=== PATIENT | male | born 1990 | race Caucasian/White ===

== ENCOUNTER 2023-04-17 15:05 | Observation (INO) ==
[2023-04-17] MEDS: SODIUM CHLORIDE 0.9% 1,000 ML IV ONE ×2 (15:38→16:17)
[2023-04-17 15:47] LABS: Base Excess VBG -15.1 mEq/L; HCO3 VBG 13 mmol/L; Oxygen Saturation VBG 81.6 %; PCO2 VBG 37 mmHg (38-50); PO2 VBG 54 mmHg; pH VBG 7.15 (7.36-7.41)
[2023-04-17] MEDS: CALCIUM GLUCONATE 1,000 MG/60 ML BAG IV STA (15:50)
[2023-04-17] MEDS: ONDANSETRON INJ 2 MG/ML 2 ML VIAL ONE (15:55)
[2023-04-17 15:56] LABS: Basophils % (auto) 0.5 %; Eosinophils # (auto) 0.02 K/uL (0.00-0.50); Eosinophils % (auto) 0.1 %; Hematocrit (blood only) 46.1 % (42.0-52.0); Hemoglobin 14.9 g/dl (14.0-18.0); Immature Granulocytes # (auto) 0.19 K/uL (0.01-0.20); Lymphocytes # (auto) 1.44 K/uL (1.20-3.40); Lymphocytes % (auto) 7.3 %; Mean Corpuscular Hemoglobin 30.2 pg (25.0-34.0); Mean Corpuscular Hgb Conc 32.3 g/dL (32.0-36.0); Mean Corpuscular Volume 93.3 fL (80.0-100.0); Mean Platelet Volume 10.4 fL (9.4-12.4); Monocytes # (auto) 0.76 K/uL (0.11-0.59); Monocytes % (auto) 3.9 %; Neutrophils # (auto) 17.14 K/uL (1.40-6.50); Neutrophils % (auto) 87.2 %; Platelet Count 273 K/uL (130-400); RDW Coefficient of Variation 11.5 % (11.5-14.5); RDW Standard Deviation 39.4 fL (36.4-46.3); Red Blood Count 4.94 M/uL (4.70-6.10); White Blood Count 19.65 K/ul (4.8-10.8)
[2023-04-17] MEDS ORDERED: CARBOHYDRATES FOR HYPOGLYCEMIA PO PRN (16:05)
[2023-04-17] MEDS ORDERED: STAT IV Infusion **Titration per Protocol STA (16:05)
[2023-04-17] MEDS ORDERED: GLUCAGON FOR INJ 1 MG VIAL SQ PRN (16:05)
[2023-04-17] MEDS ORDERED: DEXTROSE 50% 50 ML SYRINGE IV PRN (16:05)
[2023-04-17] MEDS ORDERED: GLUCOSE 40% GEL 15 GM TUBE PO PRN (16:05)
[2023-04-17] MEDS ORDERED: DKA GOAL RANGE 150-250 mg/dl ONE (16:05)
[2023-04-17] MEDS ORDERED: GLUCOSE 10 TAB/TUBE PO PRN (16:05)
[2023-04-17 16:08] LABS: iSTAT Creatinine 0.9 mg/dl (0.6-1.3); iSTAT Ionized Calcium 1.09 mmol/l (1.12-1.32); iSTAT Potassium 5.7 mmol/L (3.3-5.0)
[2023-04-17 16:15] LABS: Albumin Level 4.8 gm/dl (3.4-5.0); BUN Creatinine Ratio 23.9 (10-20); Bilirubin Direct 0.2 mg/dl (0-0.2); Calcium 9.8 mg/dl (8.6-10.3); Creatinine Clr Calc Pharmacy 91.2 ml/min; Est GFR (African American) 94.4 ml/min; Est GFR (Non-African American) 81.4 ml/min; Potassium 5.8 mmol/L (3.5-5.1)
[2023-04-17 16:29] LABS: Magnesium 1.8 mg/dl (1.7-2.4); Phosphorus 4.1 mg/dl (2.5-4.9)
[2023-04-17] MEDS: INSULIN REGULAR 250 UNITS in SODIUM CHLORIDE 0.9% 247.5 ML IV SCH (16:35)
[2023-04-17] MEDS: NovoLIN-R BOLUS FROM BAG IV ONE (16:36)
--- NOTE | 2023-04-17 16:55 | Emergency Department Note ---
Impression & Plan Diabetic ketoacidosis ED Provider Note NAME: BIANCA ORTIZ AGE: 32 SEX: M : 1990 ARRIVES VIA: Walk-In INFORMANT: Patient, ED PROVIDER(S): David Novoa MD CHIEF COMPLAINT: DKA HPI: This is a 32-year-old male presenting for DKA. Patient states that he is type I diabetic and has been in DKA numerous times. He notes that this morning he began having nausea with vomiting. He states he was somewhat drowsy and had pain generalized around his body. He states he has an insulin pump and notes that his glucose was reading high. Otherwise he notes that he feels that he is in DKA. He had nauseousness with vomiting. Increasing heart rate. No diarrhea at this point. No chest pain or shortness of breath. ROS: See above HPI for pertinent positives & negatives. A total of 10 systems reviewed and were otherwise negative. PAST MEDICAL HISTORY: See Below PAST SURGICAL HISTORY: See Below FAMILY HISTORY: See Below SOCIAL HISTORY: See Below HOME MEDICATIONS: See Below ALLERGIES: See Below VITALS: See Below PHYSICAL EXAMINATION: General: resting comfortably in no acute distress Head: Normocephalic and atraumatic Eyes: Normal inspection, extraocular muscles intact Ear, nose, throat: Normal external exam Neck: Normal range of motion Respiratory: lungs clear to auscultation bilaterally Cardiovascular: Regular rate/rhythm, no murmur GI: soft, nontender, no guarding or rebound Extremities: nontender, moves all extremities Neuro: The patient awake and alert, appropriately conversive, no focal deficits, symmetric faces Skin: Warm, dry, and intact MEDICAL DECISION MAKING: This is a 32-year-old male presenting for DKA. Patient has a high blood glucose here. He tells me he has had numerous DKA admissions and this feels similar. -Patient has elevated lactic acid level, acidotic on VBG with a large anion gap. This consistent with DKA. -[id number] testing does reveal a potassium of 5.7. Will give calcium gluconate at this time for cardiac stabilization. Otherwise will start insulin drip. Will remove patient's insulin pump when insulin is started. -Otherwise we will monitor closely for electrolyte disturbances -Will give adequate fluid resuscitation initially adding potassium as necessary repeat blood work is back -ECG independently interpreted by me with sinus tachycardia, rate of 122, right axis deviation, normal [place], normal QRS, normal QTc, no ST segment elevations consistent with STEMI criteria, occasional PVCs no peaked T waves -He has an insulin drip running with decrease in his serum glucose. Improving vital signs and lab work. Will admit for further DKA management and closure of his scalp. Differential diagnosis: DKA, sepsis, [facility] ER treatment provided: See below Diagnostics interpreted by me: ECG: See above Cardiac Monitoring: An order was placed for continuous cardiac monitoring. The monitor shows a rate of 97 with sinus rhythm. Laboratory studies: As stated above and show below. Imaging studies: See below. Critical Care Note: I have personally spent 55 minutes of critical care time in the direct management of this patient. This includes bedside care, interpretation of diagnostic studies, and testing, discussion with consultants, patient, and family members, and other required patient management activities. This 55 minutes is in excess of all separately billable procedures. Past Med/Surg History Medical History (Updated 04/20/23 @ 14:41 by David Novoa MD) Tobacco use Alcohol use T1DM (type 1 diabetes mellitus) Diabetic ketoacidosis Social History Smoking Status: Current every day smoker Tobacco Type: Cigarettes Hx Alcohol Use: Yes Hx Substance Use: No Preferred Language: Croatian Communication Ability: Effective Electric Gas Appliances Demonstrator Required: No Beliefs That Will Affect Care: None Current Living Situation: Alone Feels Safe at Home: Yes Allergies Allergies Allergy/AdvReac Type Severity Reaction Status Date / Time No Known Allergies Allergy Verified 04/17/23 17:25 Home Meds Home Medications Medication Instructions Recorded Confirmed acetaminophen 500 mg tablet 1,000 mg PO Q6H PRN PAIN/FEVER 04/17/23 04/17/23 (Tylenol Extra Strength) ibuprofen 200 mg tablet 800 mg PO Q6H PRN PAIN/FEVER 04/17/23 04/17/23 insulin aspart U-100 100 unit/mL 0 unit continuous subcutaneous 04/17/23 04/17/23 subcutaneous solution infusion CONTINOUS insulin glargine 100 unit/mL 0 unit subcut DIRECTED PRN PUMP 04/17/23 04/17/23 subcutaneous solution FAILURE Previous Rx's Medication Instructions Recorded pantoprazole 40 mg tablet,delayed 40 mg PO DAILY #30 tabs 04/18/23 release (Protonix) Results & Data (ED) Vital Signs Vital Signs - 24 hr 04/17/23 15:09 04/17/23 15:33 04/17/23 15:35 Temperature 36.6 C Temperature Source Temporal Artery Scan Pulse Rate 124 H 124 H Pulse Rate [Apical] 131 H Pulse Rate from SpO2 Sensor Respiratory Rate 18 20 Respiratory Effort / Characteristics Non-Labored Spontaneous Respiratory Depth Normal Normal Respiratory Pattern Regular Blood Pressure 119/77 Blood Pressure Mean 91 Pulse Oximetry 98 98 Oxygen Delivery Method Room Air Room Air Sepsis Recent Fever Within 48 Hours No Sepsis New/Unexplained Change in Mental Status N/A Sepsis Action Taken by Nursing No Action Required 04/17/23 17:50 04/17/23 18:00 04/17/23 18:00 Temperature Temperature Source Pulse Rate 117 H 119 H Pulse Rate [Apical] Pulse Rate from SpO2 Sensor 117 H 114 H Respiratory Rate 20 16 Respiratory Effort / Characteristics Respiratory Depth Respiratory Pattern Blood Pressure 105/62 Blood Pressure Mean 72 Pulse Oximetry 95 92 Oxygen Delivery Method Sepsis Recent Fever Within 48 Hours Sepsis New/Unexplained Change in Mental Status Sepsis Action Taken by Nursing 04/17/23 18:30 04/17/23 18:30 04/17/23 19:00 Temperature Temperature Source Pulse Rate 117 H Pulse Rate [Apical] Pulse Rate from SpO2 Sensor 115 H Respiratory Rate 21 Respiratory Effort / Characteristics Respiratory Depth Respiratory Pattern Blood Pressure 117/65 111/82 Blood Pressure Mean 76 90 Pulse Oximetry 96 Oxygen Delivery Method Sepsis Recent Fever Within 48 Hours Sepsis New/Unexplained Change in Mental Status Sepsis Action Taken by Nursing 04/17/23 19:00 Temperature Temperature Source Pulse Rate 117 H Pulse Rate [Apical] Pulse Rate from SpO2 Sensor 116 H Respiratory Rate 19 Respiratory Effort / Characteristics Respiratory Depth Respiratory Pattern Blood Pressure Blood Pressure Mean Pulse Oximetry 95 Oxygen Delivery Method Sepsis Recent Fever Within 48 Hours Sepsis New/Unexplained Change in Mental Status Sepsis Action Taken by Nursing Laboratory Data 04/18/23 03:59 04/18/23 11:57 Lab Results 04/17/23 04/17/23 04/17/23 Range/Units 15:34 15:37 15:55 WBC 19.65 H (4.8-10.8) K/ul RBC 4.94 (4.70-6.10) M/uL Hgb 14.9 (14.0-18.0) g/dl POC Hgb 15.0 (14.0-18.0) g/dl Hct 46.1 (42.0-52.0) % POC Hct 44 (42-52) % MCV 93.3 (80.0-100.0) fL MCH 30.2 (25.0-34.0) pg MCHC 32.3 (32.0-36.0) g/dL RDW Std Deviation 39.4 (36.4-46.3) fL RDW Coeff of Lionel 11.5 (11.5-14.5) % Plt Count 273 (130-400) K/uL MPV 10.4 (9.4-12.4) fL Immature Gran % (Auto) 1.0 % Neut % (Auto) 87.2 % Lymph % (Auto) 7.3 % [place] % (Auto) 3.9 % Eos % (Auto) 0.1 % Baso % (Auto) 0.5 % Neut # (Auto) 17.14 H (1.40-6.50) K/uL Lymph # (Auto) 1.44 (1.20-3.40) K/uL [place] # (Auto) 0.76 H (0.11-0.59) K/uL Eos # (Auto) 0.02 (0.00-0.50) K/uL Baso # (Auto) 0.10 (0.00-0.20) K/uL Immature Gran # (Auto) 0.19 (0.01-0.20) K/uL VBG pH 7.15 L (7.36-7.41) VBG pCO2 37 L (38-50) mmHg VBG pO2 54 mmHg VBG HCO3 13 mmol/L VBG O2 Saturation 81.6 % VBG Base Excess -15.1 mEq/L POC Sodium 133 L (135-144) mmol/L Sodium 133 L (136-145) mmol/L POC Potassium 5.7 H (3.3-5.0) mmol/L Potassium 5.8 H (3.5-5.1) mmol/L POC Chloride 105 (101-112) mmol/L Chloride 95 L (98-107) mmol/L Carbon Dioxide 11 L (21-32) mmol/L POC Total CO2 14 L (24-31) mmol/L Anion Gap 27 H (3-11) POC Anion Gap 20.0 (16-25) mmol/L POC BUN 28 H (7-18) mg/dl BUN 28 H (6-23) mg/dl Creatinine 1.17 (0.6-1.4) mg/dl POC Creatinine 0.9 (0.6-1.3) mg/dl Est Cr Clr Drug Dosing 91.2 ml/min Est GFR ( Amer) 94.4 ml/min Est GFR (Non-Af Amer) 81.4 ml/min BUN/Creatinine Ratio 23.9 H (10-20) Glucose 517 H* (70-99(Fasting)) mg/dl POC Glucose 522 H* (70-99) mg/dl POC Glucose (other) 539 H* (70-99) mg/dl Estimat Average Glucose 229 mg/dl Hemoglobin A1c 9.6 H (4.5-5.6) % Osmolality 325 H (280-300) mOsm/kg Lactate 3.3 H* (0.4-2.0) mmol/L Calcium 9.8 (8.6-10.3) mg/dl POC Ioniz Calcium Chyna 1.09 L (1.12-1.32) mmol/l Phosphorus 4.1 (2.5-4.9) mg/dl Magnesium 1.8 (1.7-2.4) mg/dl Total Bilirubin 1.0 (0.2-1.0) mg/dl Direct Bilirubin 0.2 (0-0.2) mg/dl AST 27 (13-39) U/L ALT 25 (7-52) U/L Alkaline Phosphatase 115 H (34-104) U/L Total Protein 8.0 (6.0-8.3) gm/dl Albumin 4.8 (3.4-5.0) gm/dl 04/17/23 04/17/23 04/17/23 Range/Units 17:38 17:39 17:44 WBC (4.8-10.8) K/ul RBC (4.70-6.10) M/uL Hgb (14.0-18.0) g/dl POC Hgb (14.0-18.0) g/dl Hct (42.0-52.0) % POC Hct (42-52) % MCV (80.0-100.0) fL MCH (25.0-34.0) pg MCHC (32.0-36.0) g/dL RDW Std Deviation (36.4-46.3) fL RDW Coeff of Lionel (11.5-14.5) % Plt Count (130-400) K/uL MPV (9.4-12.4) fL Immature Gran % (Auto) % Neut % (Auto) % Lymph % (Auto) % [place] % (Auto) % Eos % (Auto) % Baso % (Auto) % Neut # (Auto) (1.40-6.50) K/uL Lymph # (Auto) (1.20-3.40) K/uL [place] # (Auto) (0.11-0.59) K/uL Eos # (Auto) (0.00-0.50) K/uL Baso # (Auto) (0.00-0.20) K/uL Immature Gran # (Auto) (0.01-0.20) K/uL VBG pH (7.36-7.41) VBG pCO2 (38-50) mmHg VBG pO2 mmHg VBG HCO3 mmol/L VBG O2 Saturation % VBG Base Excess mEq/L POC Sodium (135-144) mmol/L Sodium 138 (136-145) mmol/L POC Potassium (3.3-5.0) mmol/L Potassium 4.4 D (3.5-5.1) mmol/L POC Chloride (101-112) mmol/L Chloride 106 (98-107) mmol/L Carbon Dioxide 12 L (21-32) mmol/L POC Total CO2 (24-31) mmol/L Anion Gap 20 H (3-11) POC Anion Gap (16-25) mmol/L POC BUN (7-18) mg/dl BUN 29 H (6-23) mg/dl Creatinine 1.07 (0.6-1.4) mg/dl POC Creatinine (0.6-1.3) mg/dl Est Cr Clr Drug Dosing 99.7 ml/min Est GFR ( Amer) 105.2 ml/min Est GFR (Non-Af Amer) 90.7 ml/min BUN/Creatinine Ratio 27.1 H (10-20) Glucose 376 H* (70-99(Fasting)) mg/dl POC Glucose 380 H* (70-99) mg/dl POC Glucose (other) (70-99) mg/dl Estimat Average Glucose mg/dl Hemoglobin A1c (4.5-5.6) % Osmolality (280-300) mOsm/kg Lactate 2.3 H* (0.4-2.0) mmol/L Calcium 8.4 L (8.6-10.3) mg/dl POC Ioniz Calcium Chyna (1.12-1.32) mmol/l Phosphorus (2.5-4.9) mg/dl Magnesium (1.7-2.4) mg/dl Total Bilirubin (0.2-1.0) mg/dl Direct Bilirubin (0-0.2) mg/dl AST (13-39) U/L ALT (7-52) U/L Alkaline Phosphatase (34-104) U/L Total Protein (6.0-8.3) gm/dl Albumin (3.4-5.0) gm/dl 04/17/23 Range/Units 18:45 WBC (4.8-10.8) K/ul RBC (4.70-6.10) M/uL Hgb (14.0-18.0) g/dl POC Hgb (14.0-18.0) g/dl Hct (42.0-52.0) % POC Hct (42-52) % MCV (80.0-100.0) fL MCH (25.0-34.0) pg MCHC (32.0-36.0) g/dL RDW Std Deviation (36.4-46.3) fL RDW Coeff of Lionel (11.5-14.5) % Plt Count (130-400) K/uL MPV (9.4-12.4) fL Immature Gran % (Auto) % Neut % (Auto) % Lymph % (Auto) % [place] % (Auto) % Eos % (Auto) % Baso % (Auto) % Neut # (Auto) (1.40-6.50) K/uL Lymph # (Auto) (1.20-3.40) K/uL [place] # (Auto) (0.11-0.59) K/uL Eos # (Auto) (0.00-0.50) K/uL Baso # (Auto) (0.00-0.20) K/uL Immature Gran # (Auto) (0.01-0.20) K/uL VBG pH (7.36-7.41) VBG pCO2 (38-50) mmHg VBG pO2 mmHg VBG HCO3 mmol/L VBG O2 Saturation % VBG Base Excess mEq/L POC Sodium (135-144) mmol/L Sodium (136-145) mmol/L POC Potassium (3.3-5.0) mmol/L Potassium (3.5-5.1) mmol/L POC Chloride (101-112) mmol/L Chloride (98-107) mmol/L Carbon Dioxide (21-32) mmol/L POC Total CO2 (24-31) mmol/L Anion Gap (3-11) POC Anion Gap (16-25) mmol/L POC BUN (7-18) mg/dl BUN (6-23) mg/dl Creatinine (0.6-1.4) mg/dl POC Creatinine (0.6-1.3) mg/dl Est Cr Clr Drug Dosing ml/min Est GFR ( Amer) ml/min Est GFR (Non-Af Amer) ml/min BUN/Creatinine Ratio (10-20) Glucose (70-99(Fasting)) mg/dl POC Glucose 320 H* (70-99) mg/dl POC Glucose (other) (70-99) mg/dl Estimat Average Glucose mg/dl Hemoglobin A1c (4.5-5.6) % Osmolality (280-300) mOsm/kg Lactate (0.4-2.0) mmol/L Calcium (8.6-10.3) mg/dl POC Ioniz Calcium Hcyna (1.12-1.32) mmol/l Phosphorus (2.5-4.9) mg/dl Magnesium (1.7-2.4) mg/dl Total Bilirubin (0.2-1.0) mg/dl Direct Bilirubin (0-0.2) mg/dl AST (13-39) U/L ALT (7-52) U/L Alkaline Phosphatase (34-104) U/L Total Protein (6.0-8.3) gm/dl Albumin (3.4-5.0) gm/dl Administered Medications Discontinued Medications Sodium Chloride (Nss) 1,000 mls @ 999 mls/hr IV .Q1H1M ONE Stop: 04/17/23 16:16 Last Infusion: 04/17/23 16:39 Dose: Infused Documented By: Admin: 04/17/23 15:38 Dose: 999 mls/hr Documented By: JENY Calcium Gluconate () 1,000 mg in 60 mls @ 240 mls/hr IV NOW STA Stop: 04/17/23 15:59 Last Infusion: 04/17/23 16:17 Dose: Infused Documented By: Admin: 04/17/23 15:50 Dose: 240 mls/hr Documented By: AB Insulin Human Regular 250 (units/ Sodium Chloride) 250 mls @ 2.3 mls/hr IV .Q24H RADHA; Protocol Stop: 04/18/23 14:45 Last Titration: 04/18/23 15:02 Dose: Infused Documented By: GPF Co-signed By: ES Titration: 04/18/23 14:04 Dose: 2.3 units/hr, 2.3 mls/hr Documented By: GPF Co-signed By: CAM Titration: 04/18/23 13:00 Dose: 2.3 units/hr, 2.3 mls/hr Documented By: GPF Co-signed By: CAM Titration: 04/18/23 12:00 Dose: 2.3 units/hr, 2.3 mls/hr Documented By: GPF Co-signed By: CAM Titration: 04/18/23 11:06 Dose: 2.3 units/hr, 2.3 mls/hr Documented By: GPF Co-signed By: CAM Titration: 04/18/23 10:10 Dose: 2.9 units/hr, 2.9 mls/hr Documented By: GPF Co-signed By: ES Titration: 04/18/23 09:16 Dose: 2.4 units/hr, 2.4 mls/hr Documented By: GPF Co-signed By: NMS Titration: 04/18/23 08:23 Dose: 2 units/hr, 2 mls/hr Documented By: FANG Co-signed By: CAW Titration: 04/18/23 07:22 Dose: 2 units/hr, 2 mls/hr Documented By: FANG Co-signed By: SM Titration: 04/18/23 05:10 Dose: 0 units/hr, 0 mls/hr Documented By: DENIZ Co-signed By: DLH Titration: 04/18/23 04:07 Dose: 4.3 units/hr, 4.3 mls/hr Documented By: DENIZ Co-signed By: IDD Titration: 04/18/23 00:35 Dose: 5.4 units/hr, 5.4 mls/hr Documented By: DENIZ Co-signed By: ASW Titration: 04/17/23 22:14 Dose: 0 units/hr, 0 mls/hr Documented By: JENY Co-signed By: ASW Titration: 04/17/23 21:07 Dose: 5.4 units/hr, 5.4 mls/hr Documented By: JENY Co-signed By: ACC Titration: 04/17/23 19:58 Dose: 6.7 units/hr, 6.7 mls/hr Documented By: JENY Co-signed By: ASW Titration: 04/17/23 18:49 Dose: 8.4 units/hr, 8.4 mls/hr Documented By: JENY Co-signed By: ACC Titration: 04/17/23 17:42 Dose: 8.4 units/hr, 8.4 mls/hr Documented By: DESI Co-signed By: ACC Admin: 04/17/23 16:35 Dose: 7 units/hr, 7 mls/hr Documented By: JENY Co-signed By: Sodium Chloride (Nss) 1,000 mls @ 999 mls/hr IV .Q1H1M ONE Stop: 04/17/23 17:05 Last Infusion: 04/17/23 17:18 Dose: Infused Documented By: Admin: 04/17/23 16:17 Dose: 999 mls/hr Documented By: JENY Acetaminophen (Ofirmev) 1,000 mg in 100 mls @ 400 mls/hr IV NOW STA Stop: 04/17/23 17:05 Last Infusion: 04/17/23 17:14 Dose: Infused Documented By: Admin: 04/17/23 16:59 Dose: 400 mls/hr Documented By: JENY Potassium Chloride 30 meq/ (Parenteral Electrolytes) 1,015 mls @ 150 mls/hr IV .Q6H46M RADHA Stop: 05/17/23 18:59 Last Infusion: 04/17/23 23:16 Dose: Infused Documented By: Admin: 04/17/23 19:14 Dose: 150 mls/hr Documented By: JENY Pantoprazole Sodium 40 mg/ (Syringe) 10 mls @ 5 mls/min IV BID RADHA Stop: 05/17/23 20:59 Last Admin: 04/18/23 11:31 Dose: 5 mls/min Documented By: Admin: 04/17/23 20:41 Dose: 5 mls/min Documented By: JENY Acetaminophen (Ofirmev) 1,000 mg in 100 mls @ 400 mls/hr IV Q8H PRN PRN Reason: NPO, vomiting, DKA Stop: 04/20/23 21:12 Last Infusion: 04/18/23 00:35 Dose: Infused Documented By: Admin: 04/18/23 00:16 Dose: 400 mls/hr Documented By: DENIZ Potassium Chloride/Dextrose/Sod Cl (D5w And 1/2nss + 20meq Kcl) 20 meq in 1,000 mls @ 175 mls/hr IV .Q5H43M RADHA Stop: 05/17/23 22:59 Last Infusion: 04/18/23 15:00 Dose: Infused Documented By: Admin: 04/18/23 11:31 Dose: 150 mls/hr Documented By: Infusion: 04/18/23 11:31 Dose: Infused Documented By: Admin: 04/18/23 05:26 Dose: 150 mls/hr Documented By: Infusion: 04/18/23 05:25 Dose: Infused Documented By: Admin: 04/17/23 23:31 Dose: 175 mls/hr Documented By: DENIZ Magnesium Sulfate/Dextrose (Magnesium Sulfate / D5w) 1 gm in 100 mls @ 50 mls/hr IV ONE ONE Stop: 04/18/23 00:48 Last Infusion: 04/18/23 01:40 Dose: Infused Documented By: Admin: 04/17/23 23:40 Dose: 50 mls/hr Documented By: DENIZ Magnesium Sulfate/Dextrose (Magnesium Sulfate / D5w) 1 gm in 100 mls @ 50 mls/hr IV ONE ONE Stop: 04/18/23 01:59 Last Infusion: 04/18/23 03:58 Dose: Infused Documented By: Admin: 04/18/23 01:27 Dose: 50 mls/hr Documented By: DENIZ Insulin Aspart (Insulin Aspart Per Unit Charge) 0 units SC Q6 RADHA Stop: 05/17/23 17:59 Last Admin: 04/18/23 06:15 Dose: Not Given Documented By: DENIZ Co-signed By: MARCELLE Admin: 04/18/23 00:35 Dose: Not Given Documented By: DENIZ Co-signed By: MARCELLE Admin: 04/17/23 21:36 Dose: Not Given Documented By: JENY Co-signed By: TREVON Insulin Aspart (Insulin Aspart Per Unit Charge) 0 units SC [facility] Stop: 05/18/23 07:29 Last Admin: 04/18/23 11:31 Dose: Not Given Documented By: Admin: 04/18/23 08:32 Dose: Not Given Documented By: FANG Insulin Aspart (Insulin, Rapid-Acting Pump) 1 each N/A [facility]; Protocol Stop: 05/18/23 16:29 Last Admin: 04/18/23 15:00 Dose: 1 each Documented By: GABBY Co-signed By: L[place] Insulin Human Regular (Novolin-R Bolus From Bag) 7 units IV ONE ONE Stop: 04/17/23 16:31 Last Admin: 04/17/23 16:36 Dose: 7 units Documented By: JENY Co-signed By: Miscellaneous (Remove Nicoderm Patch) 1 each N/A DAILY@0859 [facility] Stop: 05/18/23 08:58 Last Admin: 04/18/23 10:03 Dose: 1 each Documented By: GABBY Boothcellaneous (Stop Order) 1 each N/A ONE ONE Stop: 04/18/23 14:46 Last Admin: 04/18/23 15:00 Dose: 1 each Documented By: GABBY Nicotine (Nicotine 21 Mg/24 Hr Tdsy) 21 mg TD NOW STA Stop: 04/17/23 18:48 Last Admin: 04/17/23 19:14 Dose: 21 mg Documented By: JENY Nicotine (Nicotine 21 Mg/24 Hr Tdsy) 21 [facility] [place] [facility] [place]: 05/18/23 08:59 Last Admin: 04/18/23 11:31 Dose: 21 mg Documented By: GABBY Ondansetron HCl (Ondansetron Inj 2 Mg/Ml 2 Ml Vial) Confirm Administered Dose 4 mg .ROUTE .STK-MED ONE Stop: 04/17/23 15:41 Last Admin: 04/17/23 15:55 Dose: 4 mg Documented By: JENY Ondansetron HCl (Ondansetron Inj 2 Mg/Ml 2 Ml Vial) 4 mg IV NOW STA Stop: 04/17/23 16:51 Last Admin: 04/17/23 16:59 Dose: 4 mg Documented By: JENY Discharge Plan Visit Data Chief Complaint: Hyperglycemia Stated Complaint: DIABETIC KETOACIDOSIS ED Provider: David Novoa Discharge Problem: Diabetic ketoacidosis Patient Disposition: Admitted As Inpatient Discharge Instructions Interventions: ED Discharge Assessment Last Done: 04/17/23 21:14
[2023-04-17] MEDS: ACETAMINOPHEN 1,000 MG/100 ML VIAL IV STA (16:59)
[2023-04-17] MEDS: ONDANSETRON INJ 2 MG/ML 2 ML VIAL IV STA (16:59)
[2023-04-17 18:27] LABS: BUN Creatinine Ratio 27.1 (10-20); Calcium 8.4 mg/dl (8.6-10.3); Creatinine Clr Calc Pharmacy 99.7 ml/min; Est GFR (African American) 105.2 ml/min; Est GFR (Non-African American) 90.7 ml/min; Potassium 4.4 mmol/L (3.5-5.1)
--- NOTE | 2023-04-17 19:02 | History & Physical Report ---
Date of Service April 17, 2023 Assessment & Plan (1) Diabetic ketoacidosis: Plan: T1DM with history of DKA Leukocytosis at 19.65 with a neutrophil predominance Initial labs on presentation: Glucose 539 Anion gap 27 VB.15/37/54/13 Lactate 3.3 Potassium 5.8 Mag/Phos WNL Hx of recurrent DKA with last being around 1 year ago; in the past it was caused by pump failures, however the current episode may have been secondary to alcohol use the night before UA ordered, pending Keep n.p.o. EKG revealed sinus tachycardia with PVCs at 122 bpm; QTc 447 Insulin drip started in the ED Add potassium supplementation once K <5.0 Once glucose <250, switch IVF to D5 NSS Trend BMPs, Mag, Phos, and VBGs q4h Diabetic education consulted A.m. CBC (2) T1DM (type 1 diabetes mellitus): Plan: Dx 13 years ago A1c ordered, pending Patient reports she takes around 48 units via insulin pump daily Start on insulin drip in the ED Keep n.p.o. for now, and eventually advance to T1DM diet as tolerated Adjust regimen as needed Pharmacy glycemic consult (3) Hematemesis: Plan: Potential hematemesis given burgundy color of vomit Hold chemical DVT PPx for now Protonix 40 mg IV twice daily (4) Alcohol use: Plan: Patient endorses alcohol use the evening of 2/3 prior to his DKA; 14 beers, 2 shots of tequila, 2 shots of bourbon, and around drink He then using a hot tub (5) Tobacco use: Plan: Current everyday tobacco cigarette smoker; 1 PPD Nicotine patch Plan Disposition: Admit to PCU telemetry DNR/DNI Keep n.p.o. for now, then advance to clear liquid diet as tolerated VTE PPx: SCDs (hold chemical DVT PPx in setting of potential hematemesis) History of Present Illness Chief Complaint: DKA Primary Care Provider: ANDREY Jefferson Cj is a 32-year-old male with PMH of T1DM with multiple episodes of DKA. He presented for nausea and vomiting and concern for DKA on 04/17. Hx of recurrent DKA (2-3x per year, per patient) with the last episode being 1y ago. He reports that he was out drinking last night on 04/16; he drank approximately 14 beers, 2 shots of tequila, 2 shots of bourbon, and a rum drink; he then used a hot tub. Patient then woke up fine this morning, and went to get coffee and started vomiting and a neon yellow color. This vomit, it eventually turned burgundy after multiple episodes of vomiting. He developed chest pain, back pain, and headache after vomiting around 11 AM; no radiation to the left arm or left jaw. He is unsure whether he has had chest pain with his DKA in the past. Patient reports he usually gets about 48u of insulin through his pump daily. He reports he does have a history of PVCs on EKG. He denies past medical history of [place], cardiac events, stroke, DVT/PE, or thyroid issues. No sick contacts. Past episodes of DKA have been precipitated by insulin pump failures. No recent change in diets. He notes that his chest pain, back pain, and headache started around noon on 04/17 prior to coming to the ED. Patient is tachycardic at 124 bpm at time of admission; vitals otherwise stable. ED course: Insulin drip Calcium gluconate 1000 mL IV Acetaminophen 1000 mg IV Zofran 4 mg IV x 2 NSS 1000 mL IV x 2 ROS: Patient endorses headache, chest pain, nausea, vomiting, and back pain. Patient denies fever, chills, night sweats, dizziness, lightheadedness, SOB, cough, diarrhea, urinary symptoms, numbness or tingling in the arms or legs. Allergies Allergy/AdvReac Type Severity Reaction Status Date / Time No Known Allergies Allergy Verified 04/17/23 17:25 Home Medications Medication Instructions Recorded Confirmed Type acetaminophen 500 mg tablet 1,000 mg PO Q6H PRN PAIN/FEVER 04/17/23 04/17/23 History (Tylenol Extra Strength) ibuprofen 200 mg tablet 800 mg PO Q6H PRN PAIN/FEVER 04/17/23 04/17/23 History insulin aspart U-100 100 unit/mL 0 unit continuous subcutaneous 04/17/23 04/17/23 History subcutaneous solution infusion CONTINOUS insulin glargine 100 unit/mL 0 unit subcut DIRECTED PRN PUMP 04/17/23 04/17/23 History subcutaneous solution FAILURE Past Med/Surg History Medical History (Updated 04/17/23 @ 19:32 by Dileep Marquez PA-C) Tobacco use Alcohol use T1DM (type 1 diabetes mellitus) Diabetic ketoacidosis Social History Smoking Status: Never smoker Preferred Language: Bulgarian Feels Safe at Home: Yes Review of Systems Review of Systems: See HPI above Physical Exam Physical Exam: General: no acute distress; lethargic; mildly diaphoretic; non-toxic appearing; thin; cooperative HEENT: normocephalic, atraumatic; no scleral icterus; PERRLA; moist mucus membrane; vision and hearing grossly intact Neck: supple; no lymphadenopathy; trachea midline Skin: warm, dry without signs of tenting; no cyanosis; no rashes, bruising, lesions, or erythema noted CV: chest wall NTP; RR, tachycardic at 124 bpm; S1/S2 normal; no murmurs/rubs/gallops; bounding pulses intact and symmetric at radial, DP, and PT Lungs: no acute respiratory distress; symmetrical chest wall expansion; clear breath sounds across all lung romo w/o adventitious sounds; no wheezing ABD: Soft, NTP; BS present; no rebound/guarding; no ascites; no distention; no rashes or bruising on abdomen MSK: no tics or fasciculations; no edema noted in the LEs b/l, nonerythematous Neuro: A&Ox3; normal mood and affect; fluent speech; no focal deficits; sensation grossly intact in the LEs b/l Burgundy colored vomit in emesis bag Results & Data Results & Data Vital Signs (Past 12 Hours) Vital Signs Temp Pulse Pulse Resp BP Pulse Ox O2 Del Method 04/17/23 15:35 124 H 04/17/23 15:33 131 H 20 98 Room Air 04/17/23 15:09 36.6 C 124 H 18 119/77 98 Room Air Laboratory Results Abnormal lab results 04/17/23 04/17/23 04/17/23 Range/Units 15:34 15:37 15:55 WBC 19.65 H (4.8-10.8) K/ul Neut # (Auto) 17.14 H (1.40-6.50) K/uL [place] # (Auto) 0.76 H (0.11-0.59) K/uL VBG pH 7.15 L (7.36-7.41) VBG pCO2 37 L (38-50) mmHg POC Sodium 133 L (135-144) mmol/L Sodium 133 L (136-145) mmol/L POC Potassium 5.7 H (3.3-5.0) mmol/L Potassium 5.8 H (3.5-5.1) mmol/L Chloride 95 L (98-107) mmol/L Carbon Dioxide 11 L (21-32) mmol/L POC Total CO2 14 L (24-31) mmol/L Anion Gap 27 H (3-11) POC BUN 28 H (7-18) mg/dl BUN 28 H (6-23) mg/dl BUN/Creatinine Ratio 23.9 H (10-20) Glucose 517 H* (70-99(Fasting)) mg/dl POC Glucose 522 H* (70-99) mg/dl POC Glucose (other) 539 H* (70-99) mg/dl Osmolality 325 H (280-300) mOsm/kg Lactate 3.3 H* (0.4-2.0) mmol/L Calcium (8.6-10.3) mg/dl POC Ioniz Calcium Chyna 1.09 L (1.12-1.32) mmol/l Alkaline Phosphatase 115 H (34-104) U/L 04/17/23 04/17/23 04/17/23 Range/Units 17:38 17:39 17:44 WBC (4.8-10.8) K/ul Neut # (Auto) (1.40-6.50) K/uL [place] # (Auto) (0.11-0.59) K/uL VBG pH (7.36-7.41) VBG pCO2 (38-50) mmHg POC Sodium (135-144) mmol/L Sodium (136-145) mmol/L POC Potassium (3.3-5.0) mmol/L Potassium (3.5-5.1) mmol/L Chloride (98-107) mmol/L Carbon Dioxide 12 L (21-32) mmol/L POC Total CO2 (24-31) mmol/L Anion Gap 20 H (3-11) POC BUN (7-18) mg/dl BUN 29 H (6-23) mg/dl BUN/Creatinine Ratio 27.1 H (10-20) Glucose 376 H* (70-99(Fasting)) mg/dl POC Glucose 380 H* (70-99) mg/dl POC Glucose (other) (70-99) mg/dl Osmolality (280-300) mOsm/kg Lactate 2.3 H* (0.4-2.0) mmol/L Calcium 8.4 L (8.6-10.3) mg/dl POC Ioniz Calcium [place]yna (1.12-1.32) mmol/l Alkaline Phosphatase (34-104) U/L 04/17/23 Range/Units 18:45 WBC (4.8-10.8) K/ul Neut # (Auto) (1.40-6.50) K/uL [place] # (Auto) (0.11-0.59) K/uL VBG pH (7.36-7.41) VBG pCO2 (38-50) mmHg POC Sodium (135-144) mmol/L Sodium (136-145) mmol/L POC Potassium (3.3-5.0) mmol/L Potassium (3.5-5.1) mmol/L Chloride (98-107) mmol/L Carbon Dioxide (21-32) mmol/L POC Total CO2 (24-31) mmol/L Anion Gap (3-11) POC BUN (7-18) mg/dl BUN (6-23) mg/dl BUN/Creatinine Ratio (10-20) Glucose (70-99(Fasting)) mg/dl POC Glucose 320 H* (70-99) mg/dl POC Glucose (other) (70-99) mg/dl Osmolality (280-300) mOsm/kg Lactate (0.4-2.0) mmol/L Calcium (8.6-10.3) mg/dl POC Ioniz Calcium Chyna (1.12-1.32) mmol/l Alkaline Phosphatase (34-104) U/L Code Status & VTE Plan Code Status DNR/DNI (discussed this with patient; father present in room; despite being 32 years old, he exhibits capacity at time of admission and is adamant that his wishes are to be a DNR/DNI) VTE Prophylaxis Plan VTE Prophylaxis will be ordered: Yes Supervising Physician Co-Signing Physician Notes Patient seen and examined, chart reviewed, case discussed with Dileep Marquez, PAC and I agree with the assessment and plan as above except as otherwise noted Labs and images reviewed Cj is a 32-year-old male with history of type 1 diabetes and multiple episodes of DKA who presented with nausea/vomiting and a high glucose reading from his insulin pump similar to prior episodes of DKA. On ER evaluation he was volume contracted, with a VBG of 7.1 /54/13 consistent with metabolic acidosis and incomplete compensatory respiratory alkalosis, potassium 5.7, BSG 539, and with a normal mag/Phos. Patient was tachycardic in the 120s with a normal blood pressure and saturating normally on room air. Anion gap of 27. lactate 3.3 downtrending to 2.3 post fluid. Discussed patient at bedside, patient had an episode of binge drinking of 14 flights, 2 tequila shots, 2 bourbon drinks, and a rum drink last night after which he used a hot tub with minimal water intake. This was likely his precipitating factor. 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 Of note patient expresses DNR/DNI CODE STATUS despite age. He is in understanding of what this means and that in the event of a cardiopulmonary arrest intubation and resuscitation efforts would not be pursued; patient is understanding of this and his father who is also a nurse for many years at bedside during discussion. Patient had had clear and yellow emesis several times were having 1 episode of darker brownish may be maroon emesis which was captured in bag. This appears to be more brown and is without bright red blood, coffee-ground emesis, or black material. May have had gastritis versus small Juliet-Jimenez tear. No epigastric tenderness is present. Will treat with SCDs and hold pharmacal prophylaxis and add PPI for gastric protection. Type I DM, DKA Urine/serum osmolality added. Denies concurrent substance use Potassium 5.7, received 1 g calcium gluconate Continue insulin gtt. Patient volume expanded with improving not yet normalized lactate. - Potassium 5.7 --> 4.4, fluids switched to Plasmalyte+20KCL @ 150. When BSG reaches 250 add D5 and continue insulin drip VBG every 4 hours, mag, Phos every 4 hours, BMP every 4 hours N.p.o. until pH greater than 7.3, gap closes, and BSG is less than 250 with normalized bicarb PG Care Time/CCT Total # of Minutes Spent Total Time Spent with Patient: Total time spent is greater than 50% in coordination of care (as documented) at patient's floor/unit and/or counseling patient: [place] [address] INT INP/OBS CARE 3/75MIN Patient Type New History Comprehensive Exam Comprehensive Medical Decision Making High Complexity Diagnoses Diabetic ketoacidosis E11.10 T1DM (type 1 diabetes mellitus) E10.9 Hematemesis K92.0 Alcohol use Z78.9 Tobacco use Z72.0
[2023-04-17] MEDS: NICOTINE 21 MG/24 HR TDSY TD STA (19:14)
[2023-04-17] MEDS: POTASSIUM CHLORIDE 30 MEQ IV SCH (19:14)
[2023-04-17] MEDS: MULTIPLE ELECTROLYTES IV SCH (19:14)
[2023-04-17 19:43] LABS: Base Excess VBG -9.6 mEq/L; HCO3 VBG 17 mmol/L; Oxygen Saturation VBG 88.1 %; PCO2 VBG 36 mmHg (38-50); PO2 VBG 57 mmHg; pH VBG 7.27 (7.36-7.41)
[2023-04-17] MEDS: PANTOprazole 40 MG in SYRINGE 0 ML IV SCH (20:41)
[2023-04-17 20:54] LABS: Appearance Urine Clear (Clear); Bilirubin Urine Negative (Negative); Blood Urine Negative (Negative); Color Urine Yellow; Glucose Urine UA 2+ (Negative); Ketones Urine 4+ (Negative); Leukocyte Esterase Urine Negative (Negative); Nitrite Urine Negative (Negative); Protein Urine Negative (Negative); Urobilinogen Urine Negative (Negative); pH Urine 5.5 (4.5-7.5)
[2023-04-17] MEDS ORDERED: ONDANSETRON INJ 2 MG/ML 2 ML VIAL IV PRN (21:13)
[2023-04-17] MEDS ORDERED: PHARMACY GLYCEMIC MGMT CONSULT PRN (21:13)
[2023-04-17] MEDS: INSULIN ASPART PER UNIT CHARGE SC SCH (21:36)
[2023-04-17 22:02] LABS: BUN Creatinine Ratio 24.8 (10-20); Calcium 8.5 mg/dl (8.6-10.3); Creatinine Clr Calc Pharmacy 105.6 ml/min; Est GFR (African American) 112.7 ml/min; Est GFR (Non-African American) 97.3 ml/min; Potassium 4.2 mmol/L (3.5-5.1)
[2023-04-17 22:05] LABS: Magnesium 1.6 mg/dl (1.7-2.4); Phosphorus 1.3 mg/dl (2.5-4.9)
[2023-04-17] MEDS: D5W AND 1/2NSS + 20MEQ KCL 20 MEQ/1,000 ML BAG IV SCH (23:31)
[2023-04-17] MEDS: MAGNESIUM SULFATE / D5W 1 GM/100 ML BAG IV ONE (23:40)
[2023-04-18] MEDS: ACETAMINOPHEN 1,000 MG/100 ML VIAL IV PRN (00:16)
[2023-04-18 01:12] LABS: BUN Creatinine Ratio 23.4 (10-20); Calcium 8.2 mg/dl (8.6-10.3); Creatinine Clr Calc Pharmacy 113.5 ml/min; Est GFR (Non-African American) 106.1 ml/min; Magnesium 1.7 mg/dl (1.7-2.4); Phosphorus 2.9 mg/dl (2.5-4.9); Potassium 4.8 mmol/L (3.5-5.1)
[2023-04-18] MEDS: MAGNESIUM SULFATE / D5W 1 GM/100 ML BAG IV ONE (01:27)
[2023-04-18 04:24] LABS: Basophils # (auto) 0.06 K/uL (0.00-0.20); Basophils % (auto) 0.3 %; Eosinophils # (auto) 0.07 K/uL (0.00-0.50); Eosinophils % (auto) 0.4 %; Hematocrit (blood only) 36.2 % (42.0-52.0); Hemoglobin 12.1 g/dl (14.0-18.0); Immature Granulocytes # (auto) 0.11 K/uL (0.01-0.20); Immature Granulocytes % (auto) 0.6 %; Lymphocytes # (auto) 3.22 K/uL (1.20-3.40); Lymphocytes % (auto) 17.3 %; Mean Corpuscular Hgb Conc 33.4 g/dL (32.0-36.0); Mean Corpuscular Volume 89.8 fL (80.0-100.0); Monocytes % (auto) 9.7 %; Neutrophils # (auto) 13.35 K/uL (1.40-6.50); Neutrophils % (auto) 71.7 %; Platelet Count 242 K/uL (130-400); RDW Coefficient of Variation 11.5 % (11.5-14.5); RDW Standard Deviation 37.4 fL (36.4-46.3); Red Blood Count 4.03 M/uL (4.70-6.10); White Blood Count 18.61 K/ul (4.8-10.8)
[2023-04-18 04:39] LABS: BUN Creatinine Ratio 23.9 (10-20); Calcium 8.5 mg/dl (8.6-10.3); Est GFR (African American) 126.2 ml/min; Est GFR (Non-African American) 108.9 ml/min; Magnesium 2.1 mg/dl (1.7-2.4); Phosphorus 1.7 mg/dl (2.5-4.9); Potassium 4.1 mmol/L (3.5-5.1)
--- NOTE | 2023-04-18 07:46 | Electrocardiogram Report ---
Test Reason : Blood Pressure : / mmHG Vent. Rate : 122 BPM Atrial Rate : 122 BPM P-R Int : 146 ms QRS Dur : 086 ms QT Int : 314 ms P-R-T Axes : 059 147 053 degrees QTc Int : 447 ms Sinus tachycardia with occasional Premature ventricular complexes Right axis deviation Abnormal ECG No previous ECGs available Confirmed by Kingsley Hoyos ([id number]) on 04/18/2023 7:45:54 AM Referred By: Confirmed By:Kingsley Hoyos
[2023-04-18 07:47] LABS: Estimated Average Glucose 229 mg/dl; Hemoglobin A1C 9.6 % (4.5-5.6)
--- NOTE | 2023-04-18 08:20 | Hospitalist Progress Note ---
Date of Service April 18, 2023 Assessment & Plan Plan (1) Diabetic ketoacidosis: T1DM with history of DKA Leukocytosis, WBC 19.65, neutrophil predominance Initial labs on presentation: Glucose 539, AG, 27; VB.15/37/54/13; Lactate 3.3; Potassium 5.8; Mag/Phos WNL Hx of recurrent DKA with last being around 1 year ago; in the past it was caused by pump failures, however the current episode may have been secondary to alcohol use the night before UA: Ur Glu, 2+/ Ur Ket, 4+ Diet, kept NPO EKG revealed sinus tachycardia with PVCs at 122 bpm; QTc 447 Insulin drip started in the ED Add potassium supplementation once K <5.0 Once glucose <250, switch IVF to D5 NSS Trend BMPs, Mag, Phos, and VBGs q4h Diabetic education consulted AM CBC (2) T1DM (type 1 diabetes mellitus): Dx 13 years ago A1c ordered, pending Patient reports he takes around 48 units via insulin pump daily Start on insulin drip in the ED Keep NPO for now, eventually advance to T1DM diet as tolerated Adjust regimen as needed, Pharmacy glycemic consult, Pt has own insulin pump at home (3) Hematemesis: Potential hematemesis given burgundy color of vomit --> what was pt drinking? Hold chemical DVT PPx for now Protonix 40 mg IV twice daily, continue with outpt F/U can address more thoroughly if needed (4) Alcohol use: Patient endorses alcohol use the evening of 2/3 prior to his DKA; 14 beers, 2 shots of tequila, 2 shots of bourbon, and around drink He then using a hot tub (5) Tobacco use: Current everyday tobacco cigarette smoker; 1 PPD Nicotine patch Plan Disposition: Admit to PCU telemetry DNR/DNI Keep n.p.o. for now, then advance to clear liquid diet as tolerated VTE PPx: SCDs (hold chemical DVT PPx in setting of potential hematemesis) Admission and Anticipated Discharge Date Admission Date: April 17, 2023 Subjective Patient is a 32 yo M who presented for DKA This morning pt feels better than upon admission, but still feels like "he was hit by a truck". Does not know why he had burgundy color to vomit. First episode of vomiting was color of energy drink he'd mixed w/ alcohol, subsequent episodes had burgundy color. Pt noted that previous DKA episode when at [facility], he had burgundy vomit too. Results & Data Results & Data Vital Signs (Past 12 Hours) Vital Signs Pulse Pulse Resp BP BP Pulse Ox Pulse Ox 04/18/23 08:00 96 H 21 99 04/18/23 07:52 93 H 04/18/23 07:50 96 H 21 97 04/18/23 07:40 107 H 19 97 04/18/23 07:30 95 H 18 94 04/18/23 07:20 103 H 19 97 04/18/23 07:10 95 H 17 97 04/18/23 07:00 102 H 18 98 04/18/23 06:50 93 H 18 98 04/18/23 06:46 97 H 19 98 04/18/23 06:30 97 H 04/18/23 06:30 109/84 04/18/23 06:20 97 H 19 97 04/18/23 06:10 99 H 20 99 04/18/23 06:00 95 H 17 99 04/18/23 06:00 111/80 04/18/23 05:50 103 H 19 100 04/18/23 05:40 98 H 20 99 04/18/23 05:30 94 H 19 100 04/18/23 05:30 109/80 04/18/23 05:20 86 18 100 04/18/23 05:10 92 H 16 99 04/18/23 05:00 113/87 04/18/23 05:00 101 H 16 97 04/18/23 04:50 89 16 98 04/18/23 04:40 89 17 99 04/18/23 04:30 109/71 04/18/23 04:30 89 16 99 04/18/23 04:20 94 H 16 98 04/18/23 04:10 93 H 18 99 04/18/23 04:00 96 H 22 99 04/18/23 04:00 106/76 04/18/23 03:50 93 H 18 96 04/18/23 03:40 93 H 19 96 04/18/23 03:30 91 H 18 95 04/18/23 03:30 93/62 L 04/18/23 03:20 91 H 19 96 04/18/23 03:10 95 H 18 97 04/18/23 03:00 99 H 18 97 04/18/23 03:00 110/72 02 02:50 101 H 18 96 04/18/23 02:40 99 H 19 95 04/18/23 02:30 99 H 18 96 04/18/23 02:30 98/67 L 04/18/23 02:20 102 H 20 97 04/18/23 02:10 100 H 20 97 04/18/23 02:00 100 H 17 97 04/18/23 02:00 95/72 L 04/18/23 01:50 105 H 14 97 04/18/23 01:40 104 H 18 95 04/18/23 01:30 103 H 19 96 04/18/23 01:30 104/63 04/18/23 01:30 104 H 18 104/63 96 04/18/23 01:20 106 H 20 96 04/18/23 01:10 105 H 20 96 04/18/23 01:00 91/67 L 04/18/23 01:00 103 H 17 95 04/18/23 00:50 103 H 21 96 04/18/23 00:40 104 H 19 97 04/18/23 00:30 106/78 04/18/23 00:30 104 H 18 96 04/18/23 00:20 108 H 22 95 04/18/23 00:10 110 H 22 95 04/18/23 00:00 114 H 19 96 04/18/23 00:00 105/66 04/17/23 23:50 109 H 21 97 04/17/23 23:40 108 H 18 96 04/17/23 23:30 115 H 21 95 04/17/23 23:30 116/76 02 23:30 108 H 20 116/76 97 04/17/23 23:20 121 H 24 96 04/17/23 23:15 110 H 04/17/23 23:10 111 H 15 97 04/17/23 23:00 128/69 04/17/23 23:00 107 H 22 98 04/17/23 22:50 118 H 21 98 04/17/23 22:40 108 H 19 95 04/17/23 22:30 107 H 15 97 04/17/23 22:30 100/59 L 04/17/23 22:20 109 H 21 97 04/17/23 22:10 110 H 20 96 04/17/23 22:00 111 H 21 95 04/17/23 22:00 97/66 L 04/17/23 21:50 112 H 22 95 04/17/23 21:40 113 H 22 95 04/17/23 21:36 95 04/17/23 21:30 114 H 21 96 04/17/23 21:30 112/77 04/17/23 21:20 114 H 21 96 04/17/23 21:10 112 H 21 96 04/17/23 21:00 124/75 04/17/23 21:00 111 H 22 97 04/17/23 20:50 60 23 94 04/17/23 20:40 115 H 23 98 04/17/23 20:30 114/79 04/17/23 20:30 120 H 23 98 04/17/23 20:20 120 H 26 H 98 O2 Del Method O2 Del Method 04/18/23 08:00 04/18/23 07:52 04/18/23 07:50 04/18/23 07:40 04/18/23 07:30 04/18/23 07:20 04/18/23 07:10 04/18/23 07:00 04/18/23 06:50 04/18/23 06:46 04/18/23 06:30 04/18/23 06:30 04/18/23 06:20 04/18/23 06:10 04/18/23 06:00 04/18/23 06:00 04/18/23 05:50 04/18/23 05:40 04/18/23 05:30 04/18/23 05:30 04/18/23 05:20 04/18/23 05:10 04/18/23 05:00 04/18/23 05:00 04/18/23 04:50 04/18/23 04:40 04/18/23 04:30 04/18/23 04:30 04/18/23 04:20 04/18/23 04:10 04/18/23 04:00 04/18/23 04:00 04/18/23 03:50 04/18/23 03:40 04/18/23 03:30 04/18/23 03:30 04/18/23 03:20 04/18/23 03:10 04/18/23 03:00 04/18/23 03:00 04/18/23 02:50 04/18/23 02:40 04/18/23 02:30 04/18/23 02:30 04/18/23 02:20 04/18/23 02:10 04/18/23 02:00 04/18/23 02:00 04/18/23 01:50 04/18/23 01:40 04/18/23 01:30 04/18/23 01:30 04/18/23 01:30 Room Air 04/18/23 01:20 04/18/23 01:10 04/18/23 01:00 04/18/23 01:00 04/18/23 00:50 04/18/23 00:40 04/18/23 00:30 04/18/23 00:30 04/18/23 00:20 04/18/23 00:10 04/18/23 00:00 04/18/23 00:00 04/17/23 23:50 04/17/23 23:40 04/17/23 23:30 04/17/23 23:30 04/17/23 23:30 Room Air 04/17/23 23:20 04/17/23 23:15 04/17/23 23:10 04/17/23 23:00 04/17/23 23:00 04/17/23 22:50 04/17/23 22:40 04/17/23 22:30 04/17/23 22:30 04/17/23 22:20 04/17/23 22:10 04/17/23 22:00 04/17/23 22:00 04/17/23 21:50 04/17/23 21:40 04/17/23 21:36 Room Air 04/17/23 21:30 04/17/23 21:30 04/17/23 21:20 04/17/23 21:10 04/17/23 21:00 04/17/23 21:00 04/17/23 20:50 04/17/23 20:40 04/17/23 20:30 04/17/23 20:30 04/17/23 20:20
[2023-04-18] MEDS: INSULIN ASPART PER UNIT CHARGE SC SCH (08:32)
[2023-04-18 08:51] LABS: BUN Creatinine Ratio 22.1 (10-20); Calcium 8.2 mg/dl (8.6-10.3); Creatinine Clr Calc Pharmacy 124.1 ml/min; Est GFR (African American) 132.1 ml/min; Est GFR (Non-African American) 113.9 ml/min; Magnesium 1.8 mg/dl (1.7-2.4); Phosphorus 2.6 mg/dl (2.5-4.9); Potassium 4.4 mmol/L (3.5-5.1)
--- NOTE | 2023-04-18 11:04 | Pharmacy Report ---
Pharmacy Glycemic Short Note 2 - Date of Service April 18, 2023 - Glycemic Short BSG Results (Last 24 hours): 04/17/23 04/17/23 04/17/23 15:34 15:37 15:55 Glucose 517 H* POC Glucose 522 H* POC Glucose (other) 539 H* 04/17/23 04/17/23 04/17/23 17:38 17:44 18:45 Glucose 376 H* POC Glucose 380 H* 320 H* POC Glucose (other) 04/17/23 04/17/23 04/17/23 19:55 21:03 21:27 Glucose 167 H POC Glucose 247 H 199 H POC Glucose (other) 04/17/23 04/17/23 04/18/23 22:11 22:50 00:14 Glucose POC Glucose 133 H 135 H 168 H POC Glucose (other) 04/18/23 04/18/23 04/18/23 00:27 01:12 02:06 Glucose 190 H POC Glucose 216 H 220 H POC Glucose (other) 04/18/23 04/18/23 04/18/23 03:06 03:59 04:00 Glucose 156 H POC Glucose 195 H 162 H POC Glucose (other) 04/18/23 04/18/23 04/18/23 05:03 06:06 07:13 Glucose POC Glucose 110 H 135 H 264 H POC Glucose (other) 04/18/23 04/18/23 04/18/23 08:13 08:20 08:54 Glucose 210 H POC Glucose 208 H 219 H POC Glucose (other) 04/18/23 10:07 Glucose POC Glucose 259 H POC Glucose (other) OUTPATIENT ANTIDIABETIC REGIMEN: * Novolog insulin pump: * basal: 20.3units/day * carb ratio: 1 unit per 15 grams carbs * average daily insulin usage: ~40-41units/day ASSESSMENT: * Type 1 diabetic admitted for DKA, felt to be likely due to alcohol consumption the prior day * Initial labs: GLU 517, AG 27, Bicarb 11, vpH 7.15, corrected Na ~140 * Patient was given IV fluid resuscitation along with IV insulin infusion per protocol. * AG acidosis resolved on this AM's chemistry (AG 5, Bicarb 24); patient remains NPO at this time but is receiving dextrose containing IVFs along with insulin drip @2.9units/hr * Discussed plan for discontinuation of insulin drip with provider. Will transition patient back to insulin pump today once supplies available and diet has been ordered. Patient is contacting friend/family to have supplies brought to hospital. PLAN FOR INPATIENT GLYCEMIC CONTROL: * Once insulin pump supplies available: initiate insulin drip per home settings. Recommending continuing the insulin drip for 1 hour overlap with patient's insulin pump. * RN to evaluate patient for competency prior to initiating insulin pump, if any concerns please contact Glycemic Control h and/or Provider. * Patient should read and sign const form [id number] Insulin Pump Therapy Patient Agreement prior to initiating pump. * Patient to track BSGs and insulin doses on form NS [id number] Patient Performed Blood Glucose Monitoring
[2023-04-18] MEDS: NICOTINE 21 MG/24 HR TDSY TD SCH (11:31)
[2023-04-18 13:01] LABS: Calcium 8.1 mg/dl (8.6-10.3); Creatinine Clr Calc Pharmacy 131.7 ml/min; Est GFR (African American) 135.3 ml/min; Est GFR (Non-African American) 116.8 ml/min; Magnesium 1.8 mg/dl (1.7-2.4); Phosphorus 1.3 mg/dl (2.5-4.9)
[2023-04-18] MEDS ORDERED: INSULIN ASPART 100 UNITS/ML VIAL SC PRN (13:30)
[2023-04-18] MEDS: INSULIN, Rapid-Acting PUMP SCH (15:00)
--- NOTE | 2023-04-18 15:54 | Discharge Summary ---
Date of Service April 18, 2023 Admission HPI Per Admitting Provider Cj is a 32-year-old male with PMH of T1DM with multiple episodes of DKA. He presented for nausea and vomiting and concern for DKA on 04/17. Hx of recurrent DKA (2-3x per year, per patient) with the last episode being 1y ago. He reports that he was out drinking last night on 04/16; he drank approximately 14 beers, 2 shots of tequila, 2 shots of bourbon, and a rum drink; he then used a hot tub. Patient then woke up fine this morning, and went to get coffee and started vomiting and a neon yellow color. This vomit, it eventually turned burgundy after multiple episodes of vomiting. He developed chest pain, back pain, and headache after vomiting around 11 AM; no radiation to the left arm or left jaw. He is unsure whether he has had chest pain with his DKA in the past. Patient reports he usually gets about 48u of insulin through his pump daily. He reports he does have a history of PVCs on EKG. He denies past medical history of HI, cardiac events, stroke, DVT/PE, or thyroid issues. No sick contacts. Past episodes of DKA have been precipitated by insulin pump failures. No recent change in diets. He notes that his chest pain, back pain, and headache started around noon on 04/17 prior to coming to the ED. Patient is tachycardic at 124 bpm at time of admission; vitals otherwise stable. ED course: Insulin drip Calcium gluconate 1000 mL IV Acetaminophen 1000 mg IV Zofran 4 mg IV x 2 NSS 1000 mL IV x 2 ROS: Patient endorses headache, chest pain, nausea, vomiting, and back pain. Patient denies fever, chills, night sweats, dizziness, lightheadedness, SOB, cough, diarrhea, urinary symptoms, numbness or tingling in the arms or legs. Principal Diagnosis DKA Discharge Exam Constitutional WD/WN, vitals as above Respiratory normal respiratory effort, lungs clear to auscultation Cardiovascular RRR, no murmur, no edema Psychiatric A+Ox3, euthymic affect Discharge Data Allergies Allergy/AdvReac Type Severity Reaction Status Date / Time No Known Allergies Allergy Verified 04/17/23 17:25 Consultations 04/17/23 18:51 ED Decision to Admit Stat Hospital Course (1) Diabetic ketoacidosis: (2) T1DM (type 1 diabetes mellitus): Cj is a 32-year-old male with history of type 1 diabetes and multiple episodes of DKA who presented with nausea/vomiting and a high glucose reading from his insulin pump similar to prior episodes of DKA. On ER evaluation he was volume contracted, with a VBG of 7.1 // con sistent with metabolic acidosis and incomplete compensatory respiratory alkalosis, potassium 5.7, BSG 539, and with a normal mag/Phos. Patient was tachycardic in the 120s with a normal blood pressure and saturating normally on room air. Anion gap of 27. lactate 3.3 downtrending to 2.3 post fluid. Type I DM, DKA Likely precipitating factor is excessive alcohol use - 14 flights, 2 tequila shots, 2 bourbon drinks, and a rum the night before. Per pharmacist - he was also noted that his pump infusion site was bent. His 30 day average on DEXCOM was 193. Review of pump also revealed that he wasn't bolusing with meals/snacks. ---Kept on Insulin drip and IVF. Anion gap closed and patient's insulin pump was reinstalled at the time of discharge. He tolerated diet well. ---Extensive education done at the time of discharge. Emesis - ? darker colored. Had clear and yellow emesis several times and 1 episode of darker brownish. No chest pain. Likely from gastritis. ---Kept on PPI. No further episodes since admission ---continue protonix on discharge. Outpatient f/u pcp. Total Time Total Time Spent Total Time Spent (In Minutes): 30 Discharge Plan Discharge Items Patient Disposition: Home - Self-Care Reason For Visit: DKA Discharge Diagnosis: DKA Activity: Resume your previous activity Non-emergency contact: Primary Care Provider Call non-emergency contact if: your symptoms worsen, your pain is concerning for you and you have a fever Follow-up/Referrals: Roxanne Arellano CRNP [Primary Care Provider] - Diet: Carb Count or DM1 Addtl Attending Provider Instructions: You were admitted to the hospital for Diabetic Ketoacidosis, likely due to your alcohol intake the previous day. You were treated with insulin, and your symptoms improved. Please regularly check that your insulin pump is working. We recommend you reduce your alcohol intake to avoid repeat episodes of DKA and hospitalization. Please follow with your PCP in the outpatient setting. There was a concern for hematemesis. This could be partially due to gastritis or vomitting. We recommend you continue with protonix 40mg and pepcid 20mg daily to help manage symptoms. We recommend you avoid smoking to decrease the level of inflammation in your stomach. Should blood continue to be in your vomit despite these measures, please contact your PCP regarding a possible endoscopy. Your phosphorus levels were slightly low while in the hospital, likely due to vomiting. This should improve with a regular diet. Please have your levels rechecked in the outpatient setting. A discharge summary will be sent to your primary care physician to ensure continuity of care. Please bring this discharge summary with you to your next office appointment so that your provider can review it at that time. Follow-up appointments: Make a follow-up appointment with your PCP within the next week. It is very important that you follow up with them shortly after discharge from the hospital. Keep all your follow-up appointments as already scheduled. If you cannot make an appointment, notify your provider. Medications: Your medication list has been reviewed and reconciled upon discharge to ensure accuracy and continuity of care. An updated list of all your medications is included with your hospital discharge paperwork. Please review this list closely, and make note of any changes. Take your medications as instructed; do not skip a dose of your medicines. Make sure all of your doctors know every medicine you are taking (including swkj-ypi-oehulsk medicines, vitamins, and supplements). Call your primary care provider before taking any new medicines (including ukwi-qns-yttzlky medicines, vitamins, and supplements), because some of these may interact with your current medications, or may make your symptoms worse. Tell your primary care provider if you cannot afford your medications. CONTACT YOUR PRIMARY CARE PROVIDER if you experience any of the following: Nausea and Vomitting Blood in vomit, fatigue Difficulty following your treatment plan, or difficulty taking medications CALL 911 OR GO TO THE EMERGENCY DEPARTMENT if you experience any of the following: Sudden, severe abdominal pain or nausea/vomiting Severe chest pain, or chest pain that radiates (moves) to your jaw or arm Sudden, severe shortness of breath or difficulty breathing Thank you for allowing us to participate in your care. Pending Studies at Discharge: No Stand-Alone Forms: My [facility], Smoking Cessation Medications and DC Order Prescriptions: New pantoprazole [Protonix] 40 mg tablet,delayed release (DR/EC) 40 mg PO DAILY Qty: 30 0RF Continued insulin glargine 100 unit/mL solution 0 unit SUBCUT DIRECTED PRN (Reason: PUMP FAILURE) acetaminophen [Tylenol Extra Strength] 500 mg Tablet 1,000 mg PO Q6H PRN (Reason: PAIN/FEVER) insulin aspart U-100 100 unit/mL solution 0 unit continuous subcutaneous infusion CONTINOUS MDD 40-50 UNITS/DAILY ibuprofen 200 mg Tablet 800 mg PO Q6H PRN (Reason: PAIN/FEVER) Discharge Orders: Discharge Order (Routine); Ordered 04/18/23 Ordered By: Kaylen Sun/Other Patient Handouts: Quitting Smoking, Planning to Quit Smoking, E Cigarettes and Vaping Admission Data Admit Date/Time: 04/17/23 18:56 Attending Provider: Adali Flowers Admit Provider: Kuldeep Reilly Primary Care Provider: Roxanne Arellano Other Providers: Kuldeep Reilly
== END 2023-04-18 16:39 | disposition home or self-care (01) ==
LOC: ED 15:05 → EDINP 18:56 → SUATTDRO 18:56 → INTOOBSV 18:56 → 1E 21:14